=== PATIENT | female | born 1975 | race Caucasian/White ===

== ENCOUNTER 2017-07-26 08:50 | Day surgery (SDC) | payer OTHER, BC ==
[2017-07-07 13:34] LABS: HEMATOCRIT 35.7 % (36.0-47.0); HEMOGLOBIN 12.7 g/dL (12.0-15.5); HGB HCT DIFFERENCE 2.4; MEAN CORPUSCULAR HEMOGLOBIN 31.3 pg (27.0-33.4); MEAN CORPUSCULAR HGB CONC 35.6 g/dL (32.0-36.0); MEAN CORPUSCULAR VOLUME 88 fl (80-97); RED BLOOD COUNT 4.06 10^6/uL (3.72-5.28); RED CELL DISTRIBUTION WIDTH 16.4 % (11.5-14.0); WHITE BLOOD COUNT 4.8 10^3/uL (4.0-10.5)
[2017-07-07 13:35] LABS: APPEARANCE,URINE CLEAR; BILIRUBIN,URINE NEGATIVE (NEGATIVE); GLUCOSE, URINE NEGATIVE (NEGATIVE); KETONES,URINE NEGATIVE (NEGATIVE); LEUKOCYTE ESTERASE,URINE NEGATIVE (NEGATIVE); NITRITE,URINE NEGATIVE (NEGATIVE); PROTEIN,URINE NEGATIVE (NEGATIVE); UROBILINOGEN,URINE NEGATIVE mg/dL (<2.0)
[2017-07-07 13:52] LABS: ALANINE AMINOTRANSFERASE 35 U/L (9-52); ALBUMIN 4.8 g/dL (3.5-5.0); ALKALINE PHOSPHATASE 69 U/L (38-126); ANION GAP 16 (5-19); ASPARTATE AMINO TRANSFERASE 23 U/L (14-36); BILIRUBIN,DIRECT 0.3 mg/dL (0.0-0.4); BILIRUBIN,TOTAL 0.5 mg/dL (0.2-1.3); BLOOD UREA NITROGEN 12 mg/dL (7-20); CALCIUM 9.6 mg/dL (8.4-10.2); CARBON DIOXIDE 25 mmol/L (22-30); CHLORIDE 104 mmol/L (98-107); CREATININE RESULT 0.59 mg/dL (0.52-1.25); GLUCOSE 80 mg/dL (75-110); POTASSIUM 4.9 mmol/L (3.6-5.0); SODIUM 145.4 mmol/L (137-145); TOTAL PROTEIN 7.9 g/dL (6.3-8.2)
[~2017-07-26 08:50] MED LIST: CEFAZOLIN 1 GM/D5W RTU 1 GM/50 ML RTUPB IV PRN; LACTATED RINGERS 1000 ML IV PRN; LIDOCAINE 0.5% INJ-PF (5 MG/ML) 50 ML SDV SUBCUT PRN
[2017-07-26] MEDS ORDERED: SCOPOLAMINE HYDROBROMIDE 1.5 MG PATCH.TD72 ONE (09:42)
[2017-07-26] MEDS ORDERED: FAMOTIDINE INJ/PF 20 MG/2 ML SDV IV ONE (09:42)
[2017-07-26] MEDS ORDERED: MIDAZOLAM 2 MG/2 ML INJ ONE (11:16)
[2017-07-26] MEDS ORDERED: FENTANYL CITRATE INJ/PF 100 MCG/2 ML AMPUL ONE ×2 (11:16→12:45)
[2017-07-26] MEDS ORDERED: KETAMINE HCL INJ 500 MG/10 ML VIAL ONE (11:16)
[2017-07-26] MEDS ORDERED: IBUPROFEN INJ 800 MG/8 ML VIAL IV ONE (11:17)
[2017-07-26] MEDS ORDERED: PROPOFOL INJ 200 MG/20 ML VIAL IV ONE (11:17)
[2017-07-26] MEDS ORDERED: ACETAMINOPHEN 100 ML IV ONE (11:17)
[2017-07-26] MEDS ORDERED: LIDOCAINE 1% INJ-PF (10 MG/ML) 30 ML SDV ONE ×2 (11:43→11:44)
[2017-07-26] MEDS ORDERED: ONDANSETRON HCL INJ/PF 4 MG/2 ML SDV IV PRN (12:16)
[2017-07-26] MEDS ORDERED: FENTANYL CITRATE INJ/PF 100 MCG/2 ML AMPUL IV PRN ×3 (12:16)
[2017-07-26] MEDS ORDERED: MEPERIDINE HCL/PF INJ 25 MG/1 ML DISP.SYRIN IV PRN (12:16)
[2017-07-26] MEDS ORDERED: PROMETHAZINE HCL INJ 25 MG/1 ML VIAL IV PRN ×3 (12:16→12:53)
[2017-07-26] MEDS ORDERED: DIPHENHYDRAMINE HCL 50 MG/ML VIAL IV PRN (12:16)
[2017-07-26] MEDS ORDERED: OXYCODONE-ACETAMINOPHEN 5-325 MG TABLET PO PRN ×2 (12:51→12:52)
--- NOTE | 2017-07-26 14:03 | OPERATIVE REPORT E ---
Operative Report NAME: LULY FAGAN : 1975 AGE: 41Y DATE OF SURGERY: 07/26/2017 ROOM: PREOPERATIVE DIAGNOSIS: DYSFUNCTIONAL UTERINE BLEEDING. POSTOPERATIVE DIAGNOSIS: DYSFUNCTIONAL UTERINE BLEEDING. OPERATIONS: SURGEON: WILL GANT M.D. ANESTHESIA: General. ESTIMATED BLOOD LOSS: Negligible. PERTINENT HISTORY AND OPERATIVE FINDINGS: This is a 41-year-old female who had been having trouble with irregular bleeding. Had opted to proceed with a NovaSure. At the point of surgery, the vagina was normal. There was some blood; she was on her period. Cervix appeared to be grossly normal. There was a little bit of blood at the external os. Uterus was midplane, not enlarged. The adnexa was negative. PROCEDURE: Patient was brought into the OR, placed on the table in a supine position and inducted under general anesthesia. Following this, she was repositioned in dorsal lithotomy position, prepped and draped in sterile fashion. The bladder was drained of about 125 mL of clear yellow urine. A pelvic under anesthesia was done. A weighted speculum was then inserted. The cervix was grasped on its anterior lip with a single-toothed tenaculum and an Allis forceps. The uterus was sounded to 9 cm. The cervical length turned out to be 4 cm. It was dilated to a #8 Hegar dilator and then the patient had the cavity curetted. Tissue was sent to the lab. Having done this, hysteroscope was inserted. There was good visualization of the endometrial cavity. There was no evidence of any abnormalities. Having accomplished this, the scope was removed after removing the excess saline, and a NovaSure was gently introduced through the cervical os and carried up to the fundus. It was then opened. The cavity length was 5 cm. The NovaSure calculated the width to be 4.1. After opening it up, it was brought back, and we repositioned north, south, east, west, rotating it in between. This was done 3 times. Once again, the width was 4.1 and the length was 5. The equipment was enabled and then the NovaSure was turned on. We had a total burn time of 56 seconds, with a power of 113. This terminated this part of the procedure. The NovaSure was closed and removed. Scope was placed back in through the cervical os. The cavity was visualized. There appeared to be a good burn. This terminated this part of the procedure. The saline was removed and the scope was taken out. The tenaculum and the Allis were removed. There was no evidence of active bleeding. The weighted speculum was removed. The pelvic was done under anesthesia. Everything appeared to be okay. Patient was taken out of dorsal lithotomy position and placed back into supine position. Anesthesia was discontinued. She was transferred to the recovery room in satisfactory condition. DICTATING PHYSICIAN: WILL GANT M.D. [id number] PHY#: [id number] ID: [id number] JOB#: [id number] ACCT: [id number] cc:WILL GANT M.D. >
[2017-07-26] MEDS ORDERED: ONDANSETRON 4 MG TAB.RAPDIS ONE (15:48)
[2017-07-26 16:18] VITALS: BP 130/75
[2017-07-26] MEDS ORDERED: ONDANSETRON HCL INJ/PF 4 MG/2 ML SDV ONE (17:30)
[2017-07-26] MEDS ORDERED: DEXAMETHASONE SOD PHOSPHATE INJ 4 MG/1 ML VIAL ONE (17:30)
[2017-07-26] MEDS ORDERED: LIDOCAINE 2% INJ-PF (20 MG/ML) 2 ML AMPUL ONE (17:30)
== END 2017-07-26 15:50 | disposition home or self-care (01) ==
LOC: OROUT 08:50
PROVIDERS: ATTEND Obstetrics & Gynecology
PROC: 0U5B8ZZ Destruction of Endometrium, Via Natural or Artificial Opening Endoscopic (ICD-10-PCS; principal; 2017-07-26 11:55)
DX: N93.8 Other specified abnormal uterine and vaginal bleeding (principal); Z88.8 Allergy status to other drugs, medicaments and biological substances; Z87.891 Personal history of nicotine dependence
CPT/HCPCS: 36415; 85027; 81025; 80053; 81001; 88305 ×2; 58563; J2250; J0690; J1100; S0119; J3010; J3490 ×3; J2405; J2704; S0028; J0131; 952; J1741

== ENCOUNTER 2017-08-25 08:04 | Outpatient (CLI) | payer OTHER, BC ==
[~2017-08-25 08:04] MED LIST changes: +ACETAMINOPHEN 325 MG TABLET PO PRN; -CEFAZOLIN 1 GM/D5W RTU 1 GM/50 ML RTUPB IV PRN; +DIPHENHYDRAMINE HCL 25 MG CAPSULE PO PRN; +IRON DEXTRAN COMPLEX 25 MG in SYRINGE, DISPOSABLE, 1 EACH IV PRN; +IRON DEXTRAN COMPLEX 975 MG in NORMAL SALINE 1000 ML 1,000 ML IV PRN; -LACTATED RINGERS 1000 ML IV PRN; -LIDOCAINE 0.5% INJ-PF (5 MG/ML) 50 ML SDV SUBCUT PRN; +NORMAL SALINE 250 ML IV PRN
[2017-08-25 12:43] VITALS: BP 112/60
== END 2017-08-25 13:37 | disposition home or self-care (01) ==
LOC: 5TH 08:04 → II 08:04
PROVIDERS: ATTEND Internal Medicine Hematology & Oncology
PROC: 3E033GC Introduction of Other Therapeutic Substance into Peripheral Vein, Percutaneous Approach (ICD-10-PCS; principal; 2017-08-25)
DX: D50.8 Other iron deficiency anemias (principal)
CPT/HCPCS: 96367; 96375; J1750; J7030; J3490; 96365; 96366

== ENCOUNTER → 2017-10-31 | Outpatient (CLI) | payer OTHER, BC ==
--- NOTE | 2017-11-01 18:10 | WOMENS IMAGING REPORT ---
EXAM DESCRIPTION: 3D DX MAMMO BILAT; U/S BREAST UNILAT LIMITED COMPLETED DATE/TIME: 10/31/2017 10:54 am; 10/31/2017 1:04 pm REASON FOR STUDY: UNSPECIFIED LUMP; N63.22; LT BREAST N63.22 N64.4 MASTODYNIA COMPARISON: None. TECHNIQUE: Standard craniocaudal and mediolateral oblique views of each breast recorded using digita l acquisition and breast tomosynthesis. Additional left breast 90 mediolateral views. Because of a palpable abnormality left side, left breast ultrasound was also performed LIMITATIONS: None. FINDINGS: RIGHT BREAST MASSES: No suspicious masses. CALCIFICATIONS: No new or suspicious calcifications. ARCHITECTURAL DISTORTION: None. DEVELOPING DENSITY: None. ASYMMETRY: None noted. OTHER: No other significant findings. LEFT BREAST MASSES: No suspicious masses. CALCIFICATIONS: No new or suspicious calcifications. ARCHITECTURAL DISTORTION: None. DEVELOPING DENSITY: None. ASYMMETRY: None noted. OTHER: No other significant finding. Read with the assistance of CAD: .[facility] - R2 Cenova Version 1.3 .[facility] Imaging - R2 Cenova Version 1.[address] Imaging - R2 Cenova Version 2.4 .[facility] [place] - R2 Cenova Version 2.4 .[facility] - R2 Steward/Stewardess Dining Room Version 9.2 Left breast ultrasound: Patient indicates a palpable abnormality at the 1 to 2 o'clock position left breast. Ultrasound of t his area demonstrates no focal findings. No cysts. No masses. No acoustic absorption. IMPRESSION: No mammographic evidence for malignancy right breast. No mammographic or sonographic evidence for malignancy left breast BREAST DENSITY: b. There are scattered areas of fibroglandular density. BIRAD: 1 Negative. RECOMMENDATION: RECOMMENDED FOLLOW UP: Please continue yearly bilateral screening mammography in Nov. Please consider bilateral screening tomosynthesis SPECIFIC INTERVENTION/IMAGING/CONSULTATION RECOMMENDED:No additional intervention/ imaging/consultati on needed at this time. COMMUNICATION:The negative/benign results were communicated to the patient. COMMENT: The patient has been notified of the results by letter per MQSA requirements. Additional no tification policies are in place for contacting patient with suspicious or incomplete findings. Quality ID #[id number]: The [employer] recommends an annual screening mammogram for women aged 40 years or over. This facility utilizes a reminder system to ensure that all patients receive reminder letters, and/or direct phone calls for appointments. This includes reminders for routine scr eening mammograms, diagnostic mammograms, or other Breast Imaging Interventions when appropriate. Th is patient will be placed in the appropriate reminder system. The [employer] (ACR) has developed recommendations for screening MRI of the breast s in certain patient populations, to be used in conjunction with mammography. Breast MRI surveillanc e may be appropriate for women with more than 20% lifetime risk of developing breast cancer as deter mined by genetic testing, significant family history of the disease, or history of mantle radiation f or Hodgkins Disease. ACR Practice Guidelines 2008. DBT Technology DBT is a type of tomographic mammography. With conventional mammography, overlapping breast tissue ma y make lesions difficult to detect, even with good compression. DBT uses an x-ray tube that rotates a round the breast, taking images at different angles. These images are then combined to create thin sl ices of the breast that the radiologist can view as a 3D reconstruction. The [employer] unit can perform full-field digital mammograms (2D imaging); or DBT (3D imaging); or both, in a combination mode that quickly performs both the mammogram and the tomosynthesis scan while the breast is still compressed. PQRS 6045F: Fluoroscopic imaging is not utilized for breast tomosynthesis. TECHNICAL DOCUMENTATION: FINDING NUMBER: (1) ASSESSMENT: (1) JOB ID: [id number] [employer]- All Rights Reserved Reading location - IP/workstation name: [email or web address]
--- NOTE | 2017-11-01 18:10 | WOMENS IMAGING REPORT ---
EXAM DESCRIPTION: 3D DX MAMMO BILAT; U/S BREAST UNILAT LIMITED COMPLETED DATE/TIME: 10/31/2017 10:54 am; 10/31/2017 1:04 pm REASON FOR STUDY: UNSPECIFIED LUMP; N63.22; LT BREAST N63.22 N64.4 MASTODYNIA COMPARISON: None. TECHNIQUE: Standard craniocaudal and mediolateral oblique views of each breast recorded using digita l acquisition and breast tomosynthesis. Additional left breast 90 mediolateral views. Because of a palpable abnormality left side, left breast ultrasound was also performed LIMITATIONS: None. FINDINGS: RIGHT BREAST MASSES: No suspicious masses. CALCIFICATIONS: No new or suspicious calcifications. ARCHITECTURAL DISTORTION: None. DEVELOPING DENSITY: None. ASYMMETRY: None noted. OTHER: No other significant findings. LEFT BREAST MASSES: No suspicious masses. CALCIFICATIONS: No new or suspicious calcifications. ARCHITECTURAL DISTORTION: None. DEVELOPING DENSITY: None. ASYMMETRY: None noted. OTHER: No other significant finding. Read with the assistance of CAD: .[facility] - R2 Cenova Version 1.3 .[facility] Imaging - R2 Cenova Version 1.3 .[facility] Imaging - R2 Cenova Version 2.4 .[facility] [place] R2 Cenova Version 2.4 .[facility] - R2 Garde Manger Version 9.2 Left breast ultrasound: Patient indicates a palpable abnormality at the 1 to 2 o'clock position left breast. Ultrasound of t his area demonstrates no focal findings. No cysts. No masses. No acoustic absorption. IMPRESSION: No mammographic evidence for malignancy right breast. No mammographic or sonographic evidence for malignancy left breast BREAST DENSITY: b. There are scattered areas of fibroglandular density. BIRAD: 1 Negative. RECOMMENDATION: RECOMMENDED FOLLOW UP: Please continue yearly bilateral screening mammography in Nov. Please consider bilateral screening tomosynthesis SPECIFIC INTERVENTION/IMAGING/CONSULTATION RECOMMENDED:No additional intervention/ imaging/consultati on needed at this time. COMMUNICATION:The negative/benign results were communicated to the patient. COMMENT: The patient has been notified of the results by letter per MQSA requirements. Additional no tification policies are in place for contacting patient with suspicious or incomplete findings. Quality ID #225: The [employer] recommends an annual screening mammogram for women aged 40 years or over. This facility utilizes a reminder system to ensure that all patients receive reminder letters, and/or direct phone calls for appointments. This includes reminders for routine scr eening mammograms, diagnostic mammograms, or other Breast Imaging Interventions when appropriate. Th is patient will be placed in the appropriate reminder system. The [employer] (ACR) has developed recommendations for screening MRI of the breast s in certain patient populations, to be used in conjunction with mammography. Breast MRI surveillanc e may be appropriate for women with more than 20% lifetime risk of developing breast cancer as deter mined by genetic testing, significant family history of the disease, or history of mantle radiation f or Hodgkins Disease. ACR Practice Guidelines 2008. DBT Technology DBT is a type of tomographic mammography. With conventional mammography, overlapping breast tissue ma y make lesions difficult to detect, even with good compression. DBT uses an x-ray tube that rotates a round the breast, taking images at different angles. These images are then combined to create thin sl ices of the breast that the radiologist can view as a 3D reconstruction. The [employer] unit can perform full-field digital mammograms (2D imaging); or DBT (3D imaging); or both, in a combination mode that quickly performs both the mammogram and the tomosynthesis scan while the breast is still compressed. PQRS 6045F: Fluoroscopic imaging is not utilized for breast tomosynthesis. TECHNICAL DOCUMENTATION: FINDING NUMBER: (1) ASSESSMENT: (1) JOB ID: [id number] [employer]- All Rights Reserved Reading location - IP/workstation name: [email or web address]
== END ==
LOC: WI 10:34
PROVIDERS: ATTEND Nurse Practitioner Primary Care
DX: N64.4 Mastodynia (principal); N63.22 Unspecified lump in the left breast, upper inner quadrant
CPT/HCPCS: 76642; 77066; G0279; 77062

== ENCOUNTER → 2018-11-01 | Outpatient (CLI) | payer OTHER, BC ==
--- NOTE | 2018-11-02 11:50 | WOMENS IMAGING REPORT ---
EXAM DESCRIPTION: 3D SCREENING MAMMO BILAT COMPLETED DATE/TIME: 11/01/2018 12:51 pm REASON FOR STUDY: ROUTINE 3D BILATERAL SCREENING,Z12.31 Z12.31 ENCNTR SCREEN MAMMOGRAM FOR MALIGNAN T NEOPLASM OF JOVANY COMPARISON: 2018 TECHNIQUE: Standard craniocaudal and mediolateral oblique views of each breast recorded using digita l acquisition and breast tomosynthesis. LIMITATIONS: None. FINDINGS: No masses, calcifications or architectural distortion. No areas of suspicion. Read with the assistance of CAD. .[facility] [place] - R2 Cenova Version 1.3 .[facility] Imaging - R2 Cenova Version 2.1 .[facility] Imaging - R2 Cenova Version 2.4 .[facility] [place] - R2 Cenova Version 2.4 .[facility] - R2 Producer Arborist Manager Version 9.2 IMPRESSION: NORMAL MAMMOGRAM. BIRADS 1. BREAST DENSITY: b. There are scattered areas of fibroglandular density. BIRAD: 1 NEGATIVE RECOMMENDATION: ROUTINE SCREENING COMMENT: The patient has been notified of the results by letter per [place] requirements. Additional no tification policies are in place for contacting patient with suspicious or incomplete findings. Quality ID #[id number]: The [employer] recommends an annual screening mammogram for women aged 40 years or over. This facility utilizes a reminder system to ensure that all patients receive reminder letters, and/or direct phone calls for appointments. This includes reminders for routine scr eening mammograms, diagnostic mammograms, or other Breast Imaging Interventions when appropriate. Th is patient will be placed in the appropriate reminder system. The [employer] (ACR) has developed recommendations for screening MRI of the breast s in certain patient populations, to be used in conjunction with mammography. Breast MRI surveillanc e may be appropriate for women with more than 20% lifetime risk of developing breast cancer as deter mined by genetic testing, significant family history of the disease, or history of mantle radiation f or Hodgkins Disease. ACR Practice Guidelines 2008. DBT Technology DBT is a type of tomographic mammography. With conventional mammography, overlapping breast tissue ma y make lesions difficult to detect, even with good compression. DBT uses an x-ray tube that rotates a round the breast, taking images at different angles. These images are then combined to create thin sl ices of the breast that the radiologist can view as a 3D reconstruction. The [employer] unit can perform full-field digital mammograms (2D imaging); or DBT (3D imaging); or both, in a combination mode that quickly performs both the mammogram and the tomosynthesis scan while the breast is still compressed. PQRS 6045F: Fluoroscopic imaging is not utilized for breast tomosynthesis. TECHNICAL DOCUMENTATION: FINDING NUMBER: (1) ASSESSMENT: (1) JOB ID: [id number] [employer]- All Rights Reserved Reading location - IP/workstation name: [email or web address]-
== END ==
LOC: WI 12:34
PROVIDERS: ATTEND Nurse Practitioner Primary Care
DX: Z12.31 Encounter for screening mammogram for malignant neoplasm of breast (principal)
CPT/HCPCS: 77063; 77067

== ENCOUNTER → 2020-09-25 | Outpatient (CLI) | payer OTHER, BC ==
--- NOTE | 2020-09-25 15:53 | WOMENS IMAGING REPORT ---
EXAM DESCRIPTION: 3D SCREENING MAMMO BILAT IMAGES COMPLETED DATE/TIME: 09/25/2020 2:05 pm REASON FOR STUDY: ROUTINE SCREENING MAMMOGRAM Z12.31 Z12.31 ENCNTR SCREEN MAMMOGRAM FOR MALIGNANT N EOPLASM OF JOVANY COMPARISON: None. EXAM PARAMETERS: Views: Standard craniocaudal and mediolateral oblique views of each breast recorded using digital acquisition and breast tomosynthesis. Read with the assistance of CAD. .[facility] - [employer] Bill Of Materials Clerk Version 9.2 LIMITATIONS: None. FINDINGS: No suspicious masses, suspicious calcifications or architectural distortion. No areas of c oncern. IMPRESSION: NEGATIVE MAMMOGRAM. BIRADS 1. BREAST DENSITY: b. There are scattered areas of fibroglandular density. BIRAD: ASSESSMENT: 1 NEGATIVE RECOMMENDATION: ROUTINE SCREENING COMMENT: The patient has been notified of the results by letter per MQSA requirements. Additional no tification policies are in place for contacting patient with suspicious or incomplete findings. Quality ID #[id number]: The [employer] recommends an annual screening mammogram for women aged 40 years or over. This facility utilizes a reminder system to ensure that all patients receive reminder letters, and/or direct phone calls for appointments. This includes reminders for routine scr eening mammograms, diagnostic mammograms, or other Breast Imaging Interventions when appropriate. Th is patient will be placed in the appropriate reminder system. TECHNICAL DOCUMENTATION: FINDING NUMBER: (1) ASSESSMENT: (1) JOB ID: [id number] [employer]- All Rights Reserved Reading location - IP/workstation name: [email or web address]
== END ==
LOC: WI 14:00
PROVIDERS: ATTEND Nurse Practitioner Primary Care
DX: Z12.31 Encounter for screening mammogram for malignant neoplasm of breast (principal)
CPT/HCPCS: 77063; 77067